=== PATIENT | male | born 1955 | race Caucasian/White ===

== ENCOUNTER → 2019-01-14 | Outpatient (CLI) | payer OTHER | LOC: M.ULTRA 10:51 | DX: N18.3 Chronic kidney disease, stage 3 (moderate) (principal) ==

== ENCOUNTER → 2019-01-20 | Outpatient (CLI) | payer OTHER | LOC: M.ULTRA 07:51 | DX: N18.3 Chronic kidney disease, stage 3 (moderate) (principal); I15.0 Renovascular hypertension ==

== ENCOUNTER → 2019-12-22 | Outpatient (CLI) | payer OTHER | LOC: M.ULTRA 08:59 | DX: M79.662 Pain in left lower leg (principal); M79.89 Other specified soft tissue disorders ==

== ENCOUNTER → 2020-06-18 | Outpatient (CLI) | payer OTHER | LOC: M.LAB 02:06 | PROVIDERS: ATTEND Anesthesiology | DX: E87.6 Hypokalemia (principal) ==

== ENCOUNTER → 2020-07-31 | Outpatient (CLI) | payer OTHER | LOC: M.ULTRA 14:30 | PROVIDERS: ATTEND Family Medicine | DX: M79.89 Other specified soft tissue disorders (principal) ==

== ENCOUNTER → 2020-08-14 | Outpatient (CLI) | payer OTHER | LOC: M.MRI 11:13 | PROVIDERS: ATTEND Family Medicine | DX: S83.241A Other tear of medial meniscus, current injury, right knee, initial encounter (principal); S83.281A Other tear of lateral meniscus, current injury, right knee, initial encounter; M25.461 Effusion, right knee; M65.861 Other synovitis and tenosynovitis, right lower leg; M71.21 Synovial cyst of popliteal space [Baker], right knee ==

== ENCOUNTER → 2021-07-29 | Outpatient (CLI) | payer OTHER | LOC: M.ULTRA 07-24 16:06 | PROVIDERS: ATTEND Family Medicine | DX: N28.1 Cyst of kidney, acquired (principal); N28.9 Disorder of kidney and ureter, unspecified ==

== ENCOUNTER → 2021-08-30 | Outpatient (CLI) | payer OTHER | LOC: M.ULTRA 11:29 | PROVIDERS: ATTEND Family Medicine | DX: I10 Essential (primary) hypertension (principal); M79.89 Other specified soft tissue disorders ==